=== PATIENT | female | born 1985 | race Hispanic/Latino ===

== ENCOUNTER 2017-01-14 08:22 | Inpatient (IN) | payer OTHER ==
[2017-01-14 08:58] LABS: Amnisure Test RUPTURE DETECTED (No Rupture)
[2017-01-14 09:19] VITALS: BMI 24.7
[2017-01-14] MEDS: Lactated Ringer's 1,000 ML IV SCH ×3 (09:20→14:02)
[2017-01-14] MEDS ORDERED: Lidocaine 1% (PF) 30 ML VIAL SC PRN ×2 (09:58→10:05)
[2017-01-14] MEDS ORDERED: Acetaminophen 500 MG TAB PO PRN (09:58)
[2017-01-14] MEDS ORDERED: Misoprostol 200 MCG TAB PR PRN (09:58)
[2017-01-14] MEDS ORDERED: HYDROcodone/Acetaminophen 5/325 mg Tablet PO PRN ×2 (09:58)
[2017-01-14] MEDS ORDERED: Zolpidem Tartrate 5 MG TAB PO PRN (09:58)
[2017-01-14] MEDS ORDERED: Diphenoxylate HCl/Atropine Tablet PO PRN ×2 (09:58)
[2017-01-14] MEDS ORDERED: LR / Pitocin 40 units/1000 ml 1,000 ML IV PRN ×2 (09:58→10:05)
[2017-01-14] MEDS ORDERED: Docusate 100 MG CAP PO PRN (09:58)
[2017-01-14] MEDS ORDERED: Ondansetron HCl/PF 4 MG/2 ML Vial IVP PRN ×3 (09:58→16:00)
[2017-01-14] MEDS ORDERED: Ibuprofen 800 MG TAB PO PRN (09:58)
[2017-01-14] MEDS ORDERED: Promethazine HCl 25 MG/ML VIAL IM PRN ×2 (09:58→11:15)
[2017-01-14 10:14] LABS: Hematocrit 37.9 % (36.0-47.0); Mean Platelet Volume 7.8 fL (7.4-10.4); Red Blood Cell (RBC) Count 4.02 mill/uL (4.20-5.40); White Blood Cell (WBC) Count 13.9 thou/uL (4.8-10.8)
[2017-01-14] MEDS ORDERED: LR 500 ML/Oxytocin 10 units 500 ML IV SCH (10:15)
[2017-01-14] MEDS ORDERED: Fentanyl 4 mcg/Marc 0.1% Cadd 100 ML ONE (10:25)
[2017-01-14] MEDS ORDERED: Acetaminophen 325 MG TAB PO PRN (11:15)
[2017-01-14] MEDS ORDERED: Naloxone HCl 0.4 mg/ml Vial IVP PRN ×2 (11:15)
[2017-01-14] MEDS ORDERED: Communication Order-Pharmacy FS SCH (11:15)
[2017-01-14] MEDS ORDERED: Lactated Ringer's 500 ML IV PRN (11:15)
[2017-01-14] MEDS ORDERED: Eucerin (Mineral Oil/Petrolatum,White) 30 gm Jar TOP PRN (11:15)
[2017-01-14] MEDS ORDERED: diphenhydrAMINE 50 MG/ML VIAL IVP PRN (11:15)
[2017-01-14] MEDS ORDERED: Fentanyl 4mcg/Marcaine 0.1% Cassette 100 ML EPIDURAL SCH (11:15)
[2017-01-14] MEDS ORDERED: ePHEDrine/0.9% NaCl/PF SYRINGE 50 mg/10 ml SLOW IVP PRN (11:15)
[2017-01-14] MEDS ORDERED: Milk Of Magnesia 30 ML UDCUP PO PRN (16:00)
[2017-01-14] MEDS ORDERED: Adacel (T-DAP) 0.5 ML VIAL IM ONE (16:00)
[2017-01-14] MEDS ORDERED: Benzocaine/Menthol 20-0.5% 60 ML CAN TOP PRN (16:00)
[2017-01-14] MEDS ORDERED: diphenhydrAMINE 25 MG CAP PO PRN (16:00)
[2017-01-14] MEDS ORDERED: Preparation H Ointment 28 GM TUBE PR PRN (16:00)
[2017-01-14] MEDS ORDERED: Lanolin Ointment 7 GM TUBE TOP PRN (16:00)
[2017-01-14] MEDS ORDERED: LR / Pitocin 40 units/1000 ml 1,000 ML IV SCH (16:00)
[2017-01-14] MEDS ORDERED: Misoprostol 200 MCG TAB VAG SCH (16:00)
[2017-01-14] MEDS ORDERED: Bisacodyl 10 MG SUPP PR PRN (16:00)
[2017-01-14] MEDS ORDERED: Bupivacaine 0.25% HCL 30 ML VIAL ONE (21:12)
[2017-01-14] MEDS: Ibuprofen 800 MG TAB PO SCH (21:28)
[2017-01-14] MEDS: Docusate (Surfak) 240 MG CAP PO SCH (21:28)
[2017-01-15] MEDS: Ferrous Sulfate 325 MG TAB PO SCH ×3 (02:43→17:39)
[2017-01-15] MEDS: Ibuprofen 800 MG TAB PO SCH ×2 (05:01→13:43)
[2017-01-15 05:47] LABS: Hematocrit 31.6 % (36.0-47.0); Mean Platelet Volume 7.4 fL (7.4-10.4); White Blood Cell (WBC) Count 14.5 thou/uL (4.8-10.8)
[2017-01-15] MEDS ORDERED: Prenatal Vitamin 1 TAB PO SCH (09:00)
[2017-01-15] MEDS: Docusate (Surfak) 240 MG CAP PO SCH (09:14)
[2017-01-15] MEDS ORDERED: Acetaminophen/Codeine 30-300mg Tablet PO PRN ×2 (16:00)
[2017-01-15] MEDS ORDERED: Zolpidem Tartrate 5 MG TAB PO PRN (16:15)
[2017-01-15 17:38] VITALS: BP 112/74; TEMP 97.8
== END 2017-01-15 19:10 | disposition home or self-care (01) | DRG 775 ==
LOC: L&D/OP 08:22 → L&D 08:48 → 3SW 20:04
PROVIDERS: ADMIT Obstetrics & Gynecology; ATTEND Obstetrics & Gynecology
PROC: 10E0XZZ Delivery of Products of Conception, External Approach (ICD-10-PCS; principal; 2017-01-14)
DX: O80 Encounter for full-term uncomplicated delivery (principal); Z37.0 Single live birth; Z3A.39 39 weeks gestation of pregnancy
CPT/HCPCS: 36415; 84112; 85027; 86780; 87340; J2001; S0020